=== PATIENT | female | born 1955 | race Caucasian/White ===

== ENCOUNTER 2024-08-21 08:23 | Emergency (ER) | payer MEDICARE, SELFPAY ==
[2024-08-21 08:33] VITALS: BP 162/78; PULSE 87; RESP 18; TEMP 36.6; O2SAT 98; BMI 24.9
--- NOTE | 2024-08-21 09:23 | ED.GENADULT ---
HPI - General Adult General Date Seen: 08/21/24 Chief complaint: Abdominal Pain Stated complaint: abdominal pain Time Seen by Provider: 08/21/24 09:00 History of Present Illness HPI narrative: Very pleasant 69-year-old female is referred to the ER today by her [facility] nurse triage line for evaluation of left flank and left-sided abdominal pain. She has actually been experiencing pain that started in her left flank for about 2 weeks. It initially began in her left flank and she thought she might have pulled some muscles while she was doing some weightlifting. Pain was there for a while then got better and has been coming and going since then. The pain is also been changing its location. Sometimes it is in the left flank, most commonly but also sometimes in her left upper quadrant and sometimes in the left lower quadrant of her abdomen. She had made an appointment to see her primary care provider in the [facility] clinic last week but that appointment was rescheduled, 2 times. She then had an appointment set up to see them on Friday but that was also pushed back until next Friday. She call the [facility] clinic today to see if she can get her appointment moved up but after talking to the triage nurse was referred here to the ER. She is not having any urinary symptoms. No hematuria. No nausea or vomiting. No fevers. No diarrhea. No bloody stools. No rashes. No bruising. She has no history of kidney stones. Her has had kidney stones in the past so she is fairly well educated about how they occur in with the symptoms are. Related Data Home Medications ?Medication ?Instructions ?Recorded ?Confirmed No Known Home Medications 08/21/24 08/21/24 Allergies Allergy/AdvReac Type Severity Reaction Status Date / Time No Known Drug Allergies Allergy Verified 08/21/24 08:39 [facility] Social History Smoking Status: Current every day smoker What tobacco products do you use: cigarettes Smoking packs per day: 0.5 Smoking cigarettes per day: 10.0 Do you use any of these nicotine containing products: None Second hand tobacco smoke exposure: No How often do you have a drink containing alcohol: never How many standard drinks containing alcohol do you have on a typical day: 1 or 2 AUDIT-C Alcohol total score: 0 Non-prescribed substance use: denies use service: No Exam Narrative: Exam Narrative: Constitutional: Appears well-developed and well-nourished. Alert. Conversant. Non toxic. HENT: Head: Atraumatic. Nose: Nose normal. Mouth/Throat: Oral mucosa is clear and moist. no trismus. Pharynx normal. Tonsils symmetric. No tonsillar enlargement, erythema, or exudate. Eyes: Conjunctivae normal. EOM normal. Pupils equal, round, and reactive to light. No scleral icterus. Neck: Normal range of motion. Neck supple. No tracheal deviation present. Cardiovascular: Normal rate, regular rhythm. No gallop. No friction rub. No murmur heard. Symmetric radial artery pulses Pulmonary/Chest: Effort normal. No stridor. No respiratory distress. No wheezes. No rales. No rhonchi . No tenderness. Abdominal: Soft. Bowel sounds normal. No distension. No mass. No tenderness. No rebound. No guarding. Left CVA tenderness. Musculoskeletal: RUE: Normal range of motion. No tenderness. No deformity LUE: Normal range of motion. No tenderness. No deformity RLE: Normal range of motion. No edema. No tenderness. No deformity LLE: Normal range of motion. No edema. No tenderness. No deformity Neurological: Alert and oriented to person, place, and time. Normal strength. CN II-VII intact. No sensory deficit. GCS eye subscore is 4. GCS verbal subscore is 5. GCS motor subscore is 6. Normal coordination Skin: Skin is warm and dry. No rash noted. No pallor. Normal capillary refill. No bruising. No rash or shingles. Psychiatric: Normal mood. Normal affect. Const: Vital Signs, click to edit/add: Vital Signs - 24 hr 08/21/24 08:33 Temperature 97.9 F Pulse Rate [Right Pulse Oximeter] 87 Respiratory Rate 18 Blood Pressure [Ri ght Upper Arm] 162/78 H Pulse Oximetry 98 Oxygen Delivery Me thod Room Air Course Vital Signs Vital signs: Initial Vital Signs Temperature 97.9 F 08/21/24 08:33 Temperature Source Temporal Artery Scan 08/21/24 08:33 Pulse Rate 87 08/21/24 08:33 Pulse Rhythm Regular 08/21/24 08:33 Respiratory Rate 18 08/21/24 08:33 Blood Pressure 162/78 H 08/21/24 08:33 Blood Pressure Mean 106 H 08/21/24 08:33 Blood Pressure Position Sitting 10/05/24 08:33 Pulse Oximetry 98 08/21/24 08:33 Oxygen Delivery Method Room Air 08/21/24 08:33 Vital Signs Temperature 97.9 F 08/21/24 08:33 Pulse Rate 87 08/21/24 08:33 Respiratory Rate 18 08/21/24 08:33 Blood Pressure 162/78 H 08/21/24 08:33 Pulse Oximetry 98 08/21/24 08:33 Oxygen Delivery Method Room Air 08/21/24 08:33 Temperature 97.9 F 08/21/24 08:33 Pulse Rate 87 08/21/24 08:33 Respiratory Rate 18 08/21/24 08:33 Blood Pressure 162/78 H 08/21/24 08:33 Pulse Oximetry 98 08/21/24 08:33 Oxygen Delivery Method Room Air 08/21/24 08:33 Medical Decision Making MDM Narrative Medical decision making narrative: Presented to the Emergency Department with intermittent fluctuate left flank and left-sided abdominal pain for the past couple of weeks.. The differential diagnosis of abdominal pain includes: Kidney stone, pyelonephritis, abdominal aortic aneurysm, colitis, diverticulitis, as well as Appendicitis, Bowel Obstruction, Ulcer, Ischemia, Pancreatitis,Enteritis/Colitis, amongst many other etiologies. Laboratory testing does not reveal a cause for the patient's pain. Urinalysis is normal. CT scan shows a 6 mm stone within the left renal collecting system without hydronephrosis and is likely not causing symptoms. No other obstructing stone or hydronephrosis noted on CT. The exact etiology of the abdominal pain is not clear at this time. No life threatening cause or need for emergent surgery or hospital admission is detected today. The patient was advised that if symptoms do not completely resolve within another 12-24 hours re-evaluation with primary care or return to the ED is indicated. The patient also understands that if they worsen, they should return to the ER right away. I discussed the uncertainty about the diagnosis and answered the patient's questions. Abdominal /flank pain return precautions discussed. Lab Data Labs: Lab Results 08/21/24 08/21/24 Range/Units 09:53 Unknown WBC 8.35 (4.50-11.00) K/uL RBC 5.01 (4.00-5.20) m/uL Hgb 15.1 (12.0-16.0) gm/dL Hct 47.5 (33.0-51.0) % MCV 95 (80-100) fL MCH 30 (26-34) pg MCHC 32 (32-36) gm/dL RDW Coeff of Virgilio 13.1 (11.5-15.5) % Plt Count 342 (140-440) K/uL Neut % (Auto) 71.1 (42.0-72.0) % Lymph % (Auto) 24.6 (20-44) % [place] % (Auto) 3.4 (0.0-11.0) % Eos % (Auto) 0.7 (0.0-7.0) % Baso % (Auto) 0.1 (0.0-3.0) % Neut # (Auto) 5.94 (1.7-7.0) K/uL Lymph # (Auto) 2.05 (0.90-2.90) K/uL [place] # (Auto) 0.30 (0.00-0.90) K/UL Eos # (Auto) 0.06 (0.00-0.50) K/uL Baso # (Auto) 0.01 (0.00-0.30) K/uL Abs Immat Gran (auto) 0.01 (0.00-0.30) K/uL Imm/Tot Granulo (auto) 0.1 % Sodium 139 (135-149) mmol/L Potassium 4.8 (3.6-5.1) mmol/L Chloride 105 (96-114) mmol/L Carbon Dioxide 27 (20-32) mmol/L Anion Gap 7 (7-15) mEq/L BUN 12 (7-30) mg/dL Creatinine 0.7 (0.5-1.5) mg/dL Estimated Creat Clear 45.85 Estimated GFR 94 ml/min Glucose 105 (60-115) mg/dL Calcium 10.0 (8.4-10.6) mg/dL Total Bilirubin 0.5 (0.1-1.5) mg/dL AST 23 (12-35) U/L ALT 11 (4-35) U/L Alkaline Phosphatase 82 (40-150) U/L Total Protein 7.5 (6.0-8.3) g/dL Albumin 5.0 (3.3-5.0) g/dL Lipase 86 (23-300) U/L Urine Color Yellow (Yellow) Urine Appearance Clear (Clear) Urine pH 6.5 (5.0-8.5) Ur Specific [place] 1.010 (1.000-1.030) Urine Protein Negative (Negative) Urine Glucose (UA) Negative (Negative) Urine Ketones Negative (Negative) Urine Blood Negative (Negative) Urine Nitrite Negative (Negative) Urine Bilirubin Negative (Negative) Urine Urobilinogen 0.2 (0.2-1.0) Ur Leukocyte Esterase Negative (Negative) Urine RBC 0-2 (0-2) Urine WBC 0-2 (0-5) Ur Squamous Epith Cells Few (None-Few) Urine Bacteria Few A (None) Imaging Data CT scan - abdomen: Attestation: I have reviewed the pertinent imaging results. Radiologist's impression: IMPRESSION: Nonobstructing 6 mm interpolar left nephrolith (4; 65). A phlebolith abuts the distal left ureter in the pelvis (2; 101). The ureter is located posterior to the phlebolith. The phlebolith is surrounded by fat. No obstructing urolith or dilatation of the upper urinary tracts. No other imaging findings to explain left flank or left lower quadrant pain. No evidence of diverticulitis. Discharge Plan Discharge Clinical Impression: Acute left flank pain Patient Disposition: Home, Self-Care Condition: Stable Instructions: Flank Pain (ED) Additional Instructions: As we discussed, please come back to the ER right away if you have worsening pain, fever, or other worsening symptoms. Please recheck with your doctor on Friday. So far your workup is reassuring but does not give a definitive explanation for your pain. Your blood counts like her white blood cells and hemoglobin look normal. Your kidney function liver function and pancreas functions normal. Your urine sample looks healthy. No sign of infection. Your CT scan does show a stone within the collecting system a your left kidney but no sign that the kidney stone is causing any blockage at this time. Prescriptions: No Action No Known Home Medications Follow Up/Referrals: Roslyn Menon DO [Primary Care Provider] - Stand Alone Forms: [employer] Info Instructions
--- NOTE | 2024-08-21 09:33 | CRLHL7_ITS ---
For Patients: As a result of the 21st Century Cures Act, medical imaging exams and procedure reports are released immediately into your electronic medical record. You may view this report before your referring provider. If you have questions, please contact your health care provider. INDICATION: Left flank pain. Left lower quadrant pain. COMPARISON: None available. TECHNIQUE: CT of the abdomen and pelvis without intravenous contrast. Please note that all CT scans at this facility use dose modulation, iterative reconstruction, and/or weight-based dosing when appropriate to reduce radiation dose to as low as reasonably achievable. FINDINGS: The study is performed without intravenous contrast. This limits the sensitivity of the exam for the detection bowel pathology, focal lesions of the abdominopelvic viscera and vascular pathology including significant vascular stenosis, occlusion and dissection. ABDOMEN Liver: Normal hepatic attenuation. No suspicious focal hepatic lesion. No intrahepatic biliary ductal dilatation. Gallbladder: Normal gallbladder size. Normal common duct caliber. No pericholecystic inflammatory changes. Pancreas: Normal pancreatic attenuation. No focal lesion. Normal duct caliber. No peripancreatic inflammatory changes. Spleen: Normal splenic attenuation. No suspicious focal lesion. Adrenal Glands: Symmetrical adrenal glands. No focal lesion of significance. Kidneys: Nonobstructing 6 mm interpolar left nephrolith (4; 65). A phlebolith abuts the distal left ureter in the pelvis (2; 101). The ureter is located posterior to the phlebolith. The phlebolith is surrounded by fat. No suspicious focal lesion. No obstructing urolith or dilatation of the upper urinary tracts. Gastrointestinal tract: Normal caliber, attenuation and wall thickness of the gastrointestinal tract. No inflammatory changes. Normal mesentery. Normal appendix. Vascular: Normal outer wall to outer wall abdominal aortic caliber. Patency and luminal caliber of the abdominopelvic arterial and venous vasculature cannot be assessed on this noncontrast study. Additional findings: No incidental adenopathy. No significant ascites, free fluid or pneumoperitoneum. PELVIS No bladder lesion is identified. Hysterectomy. No abnormal free fluid. No incidental adenopathy. SKELETON AND BODY WALL No acute or suspicious incidental findings. LOWER THORAX Partially included lower thoracic wall, lungs, pleural spaces and mediastinum are otherwise without significant incidental findings. IMPRESSION: Nonobstructing 6 mm interpolar left nephrolith (4; 65). A phlebolith abuts the distal left ureter in the pelvis (2; 101). The ureter is located posterior to the phlebolith. The phlebolith is surrounded by fat. No obstructing urolith or dilatation of the upper urinary tracts. No other imaging findings to explain left flank or left lower quadrant pain. No evidence of diverticulitis. Please note that all CT scans at this facility use dose modulation, iterative reconstruction, and/or weight-based dosing when appropriate to reduce radiation dose to as low as reasonably achievable. Dictated by Marcin Cannon MD @ 08/21/2024 10:19:04 AM (Electronically Signed)
[2024-08-21 09:59] LABS: Basophils Absolute Auto 0.01 K/uL (0.00-0.30); Basophils Percent Auto 0.1 % (0.0-3.0); Eosinophils Absolute Auto 0.06 K/uL (0.00-0.50); Eosinophils Percent Auto 0.7 % (0.0-7.0); Hematocrit 47.5 % (33.0-51.0); Hemoglobin* 15.1 gm/dL (12.0-16.0); Immature Granulocytes Abs Auto 0.01 K/uL (0.00-0.30); Immature Granulocytes Pct Auto 0.1 %; Lymphocytes Absolute Auto 2.05 K/uL (0.90-2.90); Lymphocytes Percent Auto 24.6 % (20-44); Mean Corpuscular HGB Conc 32 gm/dL (32-36); Mean Corpuscular Hemoglobin 30 pg (26-34); Mean Corpuscular Volume 95 fL (80-100); Monocytes Percent Auto 3.4 % (0.0-11.0); Neutrophils Absolute Auto 5.94 K/uL (1.7-7.0); Neutrophils Percent Auto 71.1 % (42.0-72.0); Platelet Count* 342 K/uL (140-440); RDW Coefficient of Variation % 13.1 % (11.5-15.5); Red Blood Count 5.01 m/uL (4.00-5.20); White Blood Count* 8.35 K/uL (4.50-11.00)
[2024-08-21 10:03] LABS: Slide Review Reflex No
[2024-08-21 10:14] LABS: Appearance Urine Clear (Clear); Bilirubin Urine Negative (Negative); Blood Urine Negative (Negative); Color Urine Yellow (Yellow); Glucose Urine Negative (Negative); Ketones Urine Negative (Negative); Leukocyte Esterase Urine Negative (Negative); Nitrite Urine Negative (Negative); Protein Urine Negative (Negative); Urobilinogen Urine 0.2 (0.2-1.0); pH Urine 6.5 (5.0-8.5)
[2024-08-21 10:17] LABS: Chloride* 105 mmol/L (96-114); Potassium* 4.8 mmol/L (3.6-5.1); Sodium* 139 mmol/L (135-149)
[2024-08-21 10:20] LABS: Alanine Aminotransferase* 11 U/L (4-35); Alkaline Phosphatase* 82 U/L (40-150); Anion Gap 7 mEq/L (7-15); Aspartate Amino Transferase* 23 U/L (12-35); Bilirubin Total* 0.5 mg/dL (0.1-1.5); Blood Urea Nitrogen* 12 mg/dL (7-30); Carbon Dioxide* 27 mmol/L (20-32); Creatinine* 0.7 mg/dL (0.5-1.5); Est. Creatinine Clearance* 45.85; Estimated Glomerular Filt Rate 94 ml/min; Glucose* 105 mg/dL (60-115); Lipase* 86 U/L (23-300); Total Protein* 7.5 g/dL (6.0-8.3)
[2024-08-21 10:21] LABS: RBC Urine 0-2 (0-2); WBC Urine 0-2 (0-5)
[2024-08-21 10:22] LABS: Bacteria Urine Few; Squamous Epithelial Cell Urine Few (None-Few)
== END 2024-08-21 12:06 | disposition home or self-care (01) ==
PROVIDERS: Emergency Provider Emergency Medicine; PCP Family Medicine
DX: R10.32 Left lower quadrant pain (principal)
CPT/HCPCS: 36415; 74176; 80053; 81001; 83690; 85025; 87086; 99283

== ENCOUNTER 2025-09-30 09:42 | Outpatient (CLI) | payer MEDICARE, SELFPAY ==
--- NOTE | 2025-09-30 11:11 | P.ANES_ITS ---
Anesthesia Charges Start Date/Time Anesthesia Start Date: 09/30/25 Anesthesia Start Time: 10:42 Stop Date/Time Anesthesia Stop Date: 09/30/25 Anesthesia Stop Time: 11:05 Coding CPT Codes CPT Codes: UZIEL LWR INTST NDSC NOS - [id number] ([id number]) P2 - PATIENT W/MILD SYST DISEASE, QK - SAFETY SITTER 2-4 CNCRNT ANES PROC, QX - CONSTRUCTION ACCOUNTANT SVC W/ MD MED DIRECTION
--- NOTE | 2025-09-30 11:11 | W.ANESCHARGE ---
Anesthesia Charges Start Date/Time Anesthesia Start Date: 09/30/25 Anesthesia Start Time: 10:42 Stop Date/Time Anesthesia Stop Date: 09/30/25 Anesthesia Stop Time: 11:05 Coding CPT Codes CPT Codes: UZIEL LWR INTST NDSC NOS - 49593 ([id number]) P2 - PATIENT W/MILD SYST DISEASE, QK - METHODS TIME ANALYST 2-4 CNCRNT ANES PROC, QX - LOSS MITIGATION SPECIALIST SVC W/ MD MED DIRECTION
--- NOTE | 2025-09-30 11:28 | P.ANES_ITS ---
Anesthesia Charges Start Date/Time Anesthesia Start Date: 09/30/25 Anesthesia Start Time: 10:42 Stop Date/Time Anesthesia Stop Date: 09/30/25 Anesthesia Stop Time: 11:05 Summary Extremes of Age - Over 70 or under 1: MDA Coding CPT Codes CPT Codes: ANES LWR INTST NDSC NOS - 63817 ([id number]) P2 - PATIENT W/MILD SYST DISEASE, QK - BELT PICKER 2-4 CNCRNT ANES PROC, QX - CERTIFIED SURGICAL FIRST ASSISTANT SVC W/ MD MED DIRECTION Additional Codes: Summary - Extremes of Age - Over 70 or under 1: EWELINA ([id number])
--- NOTE | 2025-09-30 11:28 | W.ANESCHARGE ---
Anesthesia Charges Start Date/Time Anesthesia Start Date: 09/30/25 Anesthesia Start Time: 10:42 Stop Date/Time Anesthesia Stop Date: 09/30/25 Anesthesia Stop Time: 11:05 Summary Extremes of Age - Over 70 or under 1: MDA Coding CPT Codes CPT Codes: ANES LWR INTST NDSC NOS - 74823 ([id number]) P2 - PATIENT W/MILD SYST DISEASE, QK - RN SURGICAL PCU 2-4 CNCRNT ANES PROC, QX - SMALL PIECE CUTTER SVC W/ MD MED DIRECTION Additional Codes: Summary - Extremes of Age - Over 70 or under 1: EWELINA ([id number])
== END 2025-09-30 09:43 | disposition home or self-care (01) ==
LOC: OP CLINIC 09:45
PROVIDERS: PCP Student in an Organized Health Care Education/Training Program; Visit Provider Internal Medicine Gastroenterology
DX: Z12.11 Encounter for screening for malignant neoplasm of colon (principal); D12.0 Benign neoplasm of cecum; Z86.0101 Personal history of adenomatous and serrated colon polyps
CPT/HCPCS: 00811; 00812; 45380; 99100; J2704